=== PATIENT | female | born 1975 | race Caucasian/White ===

== ENCOUNTER 2017-11-01 19:36 | Emergency (ER) | payer OTHER ==
[~2017-11-01] VITALS: Ht 157.5 cm; Wt 97.0 kg
[2017-11-01 19:45] VITALS: TEMP 36.7; Ht 157.5 cm; Wt 97.0 kg
[2017-11-01] MEDS ORDERED: KETOROLAC TROMETHAMINE 60 MG/2 ML VIAL IM STA (20:03)
--- NOTE | 2017-11-01 20:09 | EMERGENCY ROOM VISIT NOTE ---
History Report prepared by [employer]: Sonia Manning Under the Supervision of: Dr. Yann Ordoñez D.O. First contact with patient: 19:56 Chief Complaint: FEVER Stated Complaint: VOMIT, FEVER, HEADACHE History of Present Illness The patient is a 42 year old female who presents to the Emergency Room with complaints of a constant fever beginning two days ago. The patient states she has not been sleeping for the past couple days because she has "a lot of exams" . She reports vomiting last night and also notes a cough, headache, and runny nose. She had her flu shot 2 months ago and denies any recent sick contact. The patient has a history of hypothyroidism. Source of History: patient Onset: two days ago Position: other (generalized) Quality: other (fever) Timing: constant Associated Symptoms: + fevers, + headache, + cough, + vomiting Review of Systems See HPI for pertinent positives & negatives. A total of 10 systems reviewed and were otherwise negative. Past Medical & Surgical Medical Problems: (1) Hypothyroidism Family History Patient reports no known family medical history. Social History Smoking Status: Never Smoker Marital Status: single Occupation Status: student Current/Historical Medications Scheduled Azithromycin (Zithromax), 250 MG PO DAILY [Eltroxin], Unknown Dose PO DAILY Allergies Coded Allergies: Shrimp (Verified Allergy, Intermediate, ITCHING,MUSCLE ACHES, 11/01/17) Physical Exam Vital Signs Date Time Temp Pulse Resp B/P (MAP) Pulse Ox O2 Delivery O2 Flow Rate FiO2 11/01/17 22:05 85 20 122/77 95 Room Air 11/01/17 21:33 73 20 105/78 96 Room Air 11/01/17 19:45 36.7 93 20 135/86 95 Room Air Physical Exam GENERAL: Patient is awake, alert, and in no acute distress. Patient is resting comfortably and showing no signs of anxiety EYES: The conjunctivae are clear. The pupils are round and reactive. EARS, NOSE, MOUTH AND THROAT: TM clear bilaterally. The nose is without any evidence of any deformity. Posterior oropharynx clear. Mucous membranes are moist tongue is midline. Clear, thin rhinorrhea noted from both nares NECK: The neck is nontender and supple. RESPIRATORY: Normal respiratory effort is noted there is no evidence of wheezing rhonchi or rales CARDIOVASCULAR: Regular rate and rhythm noted there no murmurs rubs or gallops normal S1 normal S2 GASTROINTESTINAL: The abdomen is soft. Bowel sounds are present in all quadrants. Abdomen is nontender PELVIS: The Pelvis is stable. No tenderness to palpation is noted. BACK: No midline tenderness or or step-off noted range of motion in flexion extension as well as rotation no signs of muscle spasm noted MUSCULOSKELETAL/EXTREMITIES: There is no evidence of gross deformity full range of motion is noted in the hips and shoulders SKIN: There is no obvious evidence of any rash. There are no petechiae, pallor or cyanosis noted. NEUROLOGIC: Patient is awake alert and oriented x3. Medical Decision & Procedures ER Provider Diagnostic Interpretation: Radiology results as stated below per my review and radiologist interpretation: CHEST 2 VIEWS ROUTINE FINDINGS: Lung volumes are normal. No pneumothorax or pleural effusion is present. There is no consolidation. Pulmonary vascularity is normal. Cardiomediastinal silhouette is normal. IMPRESSION: No acute cardiopulmonary findings. Electronically signed by: Garcia Villa M.D. Laboratory Results Test 11/01/17 20:23 Influenza Type A (RT-PCR) Neg for Influ A (NEG) Influenza Type A Antigen Neg for Influ A (NEG) Influenza Type B Antigen Neg for Influ B (NEG) Influenza Type B (RT-PCR) Neg for Influ B (NEG) Medications Administered Medications (Trade) Dose Ordered Sig/Mayelin Route Start Time Stop Time Status Last Admin Dose Admin Ketorolac Tromethamine (Toradol Inj) 60 mg NOW STAT IM 11/01/17 20:03 11/01/17 20:05 DC 11/01/17 20:20 60 MG Ondansetron HCl (Zofran Odt) 4 mg ONE ONCE PO 11/01/17 20:15 11/01/17 20:16 DC 11/01/17 20:19 4 MG Azithromycin (Zithromax Tab) 500 mg NOW STAT PO 11/01/17 21:56 11/01/17 21:57 DC 11/01/17 22:05 500 MG ED Course 1958: The patient was evaluated in room A3. A complete history and physical examination were performed. 2002: Ordered Toradol Inj 60 mg IM. 2014: Ordered Ondansetron HCl 4 mg PO. 3: I updated the patient on her test results she would like to go home. 2155: Ordered Azithromycin 500 mg PO. 0: Upon reevaluation, the patient is resting comfortably. I discussed the results and treatment plan with her. She verbalized agreement of the treatment plan. The patient was discharged home. Medical Decision Differential diagnosis: Etiologies such as viral syndrome, otitis, pharyngitis, pneumonia, influenza, meningitis, urinary tract infection, sepsis, bacteremia, as well as others were entertained. Nursing notes reviewed. The patient is a 42-year-old female who presented to emergency department for an evaluation of cough and malaise. The patient started having symptoms a few days ago. She's been trying [id number] medications without relief. The patient was treated with antibiotics in the emergency department. She was encouraged to rest and avoid any strenuous activity. She was encouraged to call her family doctor to schedule a follow-up appointment and continue using Motrin and Tylenol for pain. Otherwise she was encouraged to return to the emergency apartment immediately if symptoms change worsen or the need arises. Medication Reconcilliation Current Medication List: was personally reviewed by me Blood Pressure Screening Patient's blood pressure: Normal blood pressure Impression Primary Impression: Bronchitis Additional Impression: URI (upper respiratory infection) Scribe Attestation The scribe's documentation has been prepared under my direction and personally reviewed by me in its entirety. I confirm that the note above accurately reflects all work, treatment, procedures, and medical decision making performed by me. Departure Information Dispostion Home / Self-Care Prescriptions Azithromycin (Zithromax) 250 Mg Tab 250 MG PO DAILY, #4 TAB Prov: Yann Ordoñez, DO 11/01/17 Referrals No Doctor, Assigned (PCP) Forms HOME CARE DOCUMENTATION FORM, IMPORTANT VISIT INFORMATION Patient Instructions Bronchitis Acute, My [facility] Additional Instructions Continue to use Motrin and Tylenol as directed for fever and body aches. I would recommend starting and nasal spray such as Flonase for decongestion. Call the family doctor to schedule a follow-up appointment as soon as possible. Drink plenty clear liquids. Problem Qualifiers Additional Impression: URI (upper respiratory infection) URI type: unspecified URI Qualified Codes: J06.9 - Acute upper respiratory infection, unspecified
[2017-11-01] MEDS ORDERED: ONDANSETRON 4MG OD TAB PO ONE (20:15)
[2017-11-01] MEDS ORDERED: ELTROXIN PO (21:08)
--- NOTE | 2017-11-01 21:28 | DIAGNOSTIC IMAGING REPORT ---
CHEST 2 VIEWS ROUTINE CLINICAL HISTORY: Fever and cough. COMPARISON STUDY: No previous studies for comparison. FINDINGS: Lung volumes are normal. No pneumothorax or pleural effusion is present. There is no consolidation. Pulmonary vascularity is normal. Cardiomediastinal silhouette is normal. IMPRESSION: No acute cardiopulmonary findings. Electronically signed by: Garcia Villa M.D. 11/01/2017 9:26 PM Dictated Date/Time: 11/01/2017 9:25 PM
[2017-11-01] MEDS ORDERED: AZITHROMYCIN 250 MG TAB PO STA (21:56)
[2017-11-01] MEDS ORDERED: AZIT250T PO (21:58)
[2017-11-01 22:05] VITALS: BP 122/77; PULSE 85; O2SAT 95
[2017-11-01 22:19] LABS: INFLUENZA A PCR Neg for Influ A (NEG); INFLUENZA B PCR Neg for Influ B (NEG)
== END 2017-11-01 22:08 | disposition home or self-care (01) ==
LOC: C.EDB 19:38 → C.EDA 22:08
DX: J06.9 Acute upper respiratory infection, unspecified (principal); E03.9 Hypothyroidism, unspecified